=== PATIENT | male | born 1960 | race Caucasian/White ===

== ENCOUNTER 2016-06-05 07:27 | Day surgery (SDC) | payer BC ==
[2016-06-04 14:55] VITALS: BMI 37.1
[2016-06-05 08:21] VITALS: TEMP 98.2
[2016-06-05 15:46] VITALS: BP 138/86; PULSE 88
--- NOTE | 2016-06-08 13:19 | PATH ---
Surgical Pathology Report Patient Name: VIRGINIE ABEL III [facility]. Rec. #: [id number] /Age/Gender: 1960 (Age: 55) / M Account: [id number] Location: U-ENDOSCOPY Taken: 06/05/2016 Received: 06/05/2016 Reported: 06/08/2016 Physicians: Ralph Bryan M.D. Specimen(s) Received A: BX CECAL POLYP B: BX RIGHT COLON POLYP Clinical History Polyps, remote family history of cancer, screening colonoscopy Colon polyps Final Diagnosis A. COLON, CECUM, POLYP, BIOPSY: FRAGMENTS OF TUBULAR ADENOMA. B. COLON, RIGHT, POLYP, BIOPSY FRAGMENTS OF TUBULAR ADENOMA. ADDITIONAL FRAGMENTS OF UNREMARKABLE COLONIC MUCOSA. Electronically Signed Gaurav Gonzalez M.D. Gross Description A. Received in formalin, labeled "biopsy cecal polyp" are 2 cardenas, irregular portions of soft tissue measuring 0.3 and 0.4 cm in greatest dimension. The specimens are submitted in toto in one cassette. B. Received in formalin, labeled "biopsy right colon polyp" are 3 cardenas, irregular portions of soft tissue ranging from 0.1-0.4 cm in greatest dimension. The specimens are submitted in toto in one cassette. 06/05/201606/05/2016
== END 2016-06-05 10:45 | disposition home or self-care (01) ==
LOC: JASU-ENDO 07:27
PROVIDERS: ATTEND Internal Medicine Gastroenterology
PROC: 0DBH8ZX Excision of Cecum, Via Natural or Artificial Opening Endoscopic, Diagnostic (ICD-10-PCS; 2016-06-05)
PROC: 0DBK8ZX Excision of Ascending Colon, Via Natural or Artificial Opening Endoscopic, Diagnostic (ICD-10-PCS; principal; 2016-06-05 08:30)
DX: Z12.11 Encounter for screening for malignant neoplasm of colon (principal); Z80.0 Family history of malignant neoplasm of digestive organs; D12.0 Benign neoplasm of cecum; D12.2 Benign neoplasm of ascending colon; K63.89 Other specified diseases of intestine
CPT/HCPCS: 88305-TC

== ENCOUNTER 2020-05-22 13:51 | Inpatient (IN) | payer BC ==
[2020-05-22] MEDS ORDERED: ONDANSETRON 4 MG/2 ML VIAL IVPUSH ONE (14:57)
[2020-05-22] MEDS ORDERED: MECLIZINE HCL 25 MG TABLET (FP) PO ONE (14:57)
[2020-05-22] MEDS ORDERED: SODIUM CHLORIDE 1,000 ML IV SCH ×2 (15:00→19:00)
[2020-05-22] MEDS ORDERED: ONDANSETRON 4 MG/2 ML VIAL ONE (15:42)
[2020-05-22] MEDS ORDERED: MECLIZINE HCL 12.5 MG TABLET ONE (15:42)
[2020-05-22 16:19] LABS: BASO % 0.3 % (0-2.0); HEMATOCRIT 43.6 % (35.4-49); HEMOGLOBIN 15.1 GM/dL (11.7-16.9); LYMPH % 15.1 % (8-40); MCHC 34.6 g/dl (32.0-35.9); MEAN CELL VOLUME 95.6 fl (80-96); MEAN PLT VOLUME 7.3 fl (7.5-11.1); MONO % 6.9 % (3.8-10.2); NEUT % 76.7 % (42.8-82.8); PLATELET COUNT 245 K/MM3 (134-434); RBC 4.56 M/mm3 (4.00-5.60); RDW 13.2 % (11.9-15.9); WHITE BLOOD COUNT 7.5 K/mm3 (4.0-10.0)
[2020-05-22 16:37] LABS: CHLORIDE 108 mmol/L (98-107); POTASSIUM 4.3 mmol/L (3.5-5.1); SODIUM 143 mmol/L (136-145)
[2020-05-22 16:38] LABS: CALCIUM 9.9 mg/dL (8.5-10.1)
[2020-05-22 16:39] LABS: ALBUMIN 4.1 g/dl (3.4-5.0); ANION GAP 12 MMOL/L (8-16); BLOOD UREA NITROGEN 15.2 mg/dL (7-18); CO2 23 mmol/L (21-32); GLUCOSE,RANDOM 117 mg/dL (74-106); MAGNESIUM 2.4 mg/dL (1.8-2.4)
[2020-05-22 16:42] LABS: PHOSPHOROUS 2.5 mg/dL (2.5-4.9); SGOT/AST 90 U/L (15-37); SGPT/ALT 65 U/L (13-61)
[2020-05-22 16:43] LABS: BILIRUBIN,TOTAL 0.7 mg/dL (0.2-1)
[2020-05-22 16:44] LABS: TOT PROT 7.7 g/dl (6.4-8.2)
[2020-05-22 16:45] LABS: ALK PHOS 59 U/L (45-117)
[2020-05-22 21:26] LABS: INR 1.14 (0.83-1.09)
[2020-05-22 21:28] LABS: ACTIVATED PTT 33.2 SECONDS (25.2-36.5)
[2020-05-22] MEDS: TOPIRAMATE 100 MG TABLET PO SCH (23:16)
[2020-05-22] MEDS: QUEtiapine FUMARATE 300 MG TABLET PO SCH (23:16)
[2020-05-22 23:28] LABS: EPI CELLS 13 /uL (0-25.1); HYALINE CASTS 2 /uL (0-3.1); PH,URINE 6.5 (5.0-8.0); URINE APPEARANCE CLEAR; URINE BACTERIA 68 /uL (0-1359); URINE BILIRUBIN NEGATIVE (NEGATIVE); URINE COLOR YELLOW; URINE GLUCOSE (UA) NEGATIVE (NEGATIVE); URINE KETONE NEGATIVE (NEGATIVE); URINE LEUK ESTERASE 1+ (NEGATIVE); URINE NITRITE NEGATIVE (NEGATIVE); URINE PROTEIN NEGATIVE (NEGATIVE); URINE RBC 4 /uL (0-23.9); URINE UROBILINOGEN 0.2 mg/dL (0.2-1.0); URINE WBC 27 /uL (0-25.8)
[2020-05-23] MEDS ORDERED: ACETAMINOPHEN 1000 MG/100 ML VIAL (NON FORMULARY) IVPB ONE (01:27)
[2020-05-23] MEDS ORDERED: ACETAMINOPHEN INJECTION 100 ML IVPB ONE (01:35)
[2020-05-23 02:56] VITALS: BMI 37.8
[2020-05-23 07:32] LABS: BASO % 0.8 % (0-2.0); EOS % 2.5 % (0-4.5); HEMATOCRIT 38.7 % (35.4-49); HEMOGLOBIN 13.3 GM/dL (11.7-16.9); LYMPH % 28.5 % (8-40); MCHC 34.4 g/dl (32.0-35.9); MEAN CELL VOLUME 95.9 fl (80-96); MEAN PLT VOLUME 7.4 fl (7.5-11.1); MONO % 9.3 % (3.8-10.2); NEUT % 58.9 % (42.8-82.8); PLATELET COUNT 210 K/MM3 (134-434); RBC 4.03 M/mm3 (4.00-5.60); RDW 12.8 % (11.9-15.9); WHITE BLOOD COUNT 6.7 K/mm3 (4.0-10.0)
[2020-05-23 07:42] LABS: INR 1.21 (0.83-1.09); PROTHROMBIN TIME (PATIENT) 14.8 SEC (9.7-13.0)
[2020-05-23 07:45] LABS: ACTIVATED PTT 32.3 SECONDS (25.2-36.5)
[2020-05-23 07:51] LABS: POTASSIUM 3.6 mmol/L (3.5-5.1)
[2020-05-23 07:59] LABS: ALBUMIN 3.6 g/dl (3.4-5.0); CALCIUM 8.9 mg/dL (8.5-10.1)
[2020-05-23 08:00] LABS: MAGNESIUM 2.3 mg/dL (1.8-2.4)
[2020-05-23 08:01] LABS: BILIRUBIN,TOTAL 0.6 mg/dL (0.2-1); TOT PROT 6.7 g/dl (6.4-8.2)
[2020-05-23 08:03] LABS: PHOSPHOROUS 3.1 mg/dL (2.5-4.9)
[2020-05-23] MEDS ORDERED: PT OWN MED DRAWER 7, Y5N ONE ×2 (09:17→16:22)
[2020-05-23] MEDS ORDERED: MECLIZINE HCL 12.5 MG TABLET PO PRN (09:35)
[2020-05-23] MEDS: lamoTRIgine 100 MG TABLET PO SCH (17:40)
[2020-05-23] MEDS: MECLIZINE HCL 12.5 MG TABLET PO SCH (17:40)
[2020-05-23] MEDS ORDERED: QUEtiapine FUMARATE 100 MG TABLET (FP) ONE (20:50)
[2020-05-23] MEDS: QUEtiapine FUMARATE 300 MG TABLET PO SCH (21:21)
[2020-05-23] MEDS: TOPIRAMATE 100 MG TABLET PO SCH (21:21)
[2020-05-24] MEDS: MECLIZINE HCL 12.5 MG TABLET PO SCH ×2 (05:52)
[2020-05-24 05:54] VITALS: TEMP 98.1
[2020-05-24 08:06] VITALS: BP 121/60; PULSE 67
[2020-05-24 08:25] LABS: POTASSIUM 3.5 mmol/L (3.5-5.1)
[2020-05-24 08:54] LABS: ALBUMIN 3.8 g/dl (3.4-5.0)
[2020-05-24 08:55] LABS: BLOOD UREA NITROGEN 15.5 mg/dL (7-18)
[2020-05-24 08:59] LABS: BILIRUBIN,TOTAL 0.8 mg/dL (0.2-1); TOT PROT 7.1 g/dl (6.4-8.2)
[2020-05-24] MEDS: lamoTRIgine 100 MG TABLET PO SCH (09:15)
== END 2020-05-24 11:29 | disposition home or self-care (01) | DRG 66 ==
LOC: JER 13:51 → JERBED 18:04 → J4W 05-23 02:45
PROVIDERS: ADMIT Internal Medicine; ATTEND Family Medicine
DX: I61.8 Other nontraumatic intracerebral hemorrhage (principal); R42 Dizziness and giddiness; E78.5 Hyperlipidemia, unspecified; K58.9 Irritable bowel syndrome, unspecified; F32.9 Major depressive disorder, single episode, unspecified; E78.1 Pure hyperglyceridemia; X58.XXXA Exposure to other specified factors, initial encounter; Y92.89 Other specified places as the place of occurrence of the external cause; I44.0 Atrioventricular block, first degree; F51.5 Nightmare disorder; D18.09 Hemangioma of other sites
CPT/HCPCS: 36415; 70450-TC; 70544-TC; 70551-TC; 70552-TC; 71045-TC-FY; 80053; 81003; 82607; 83735; 84100; 84443; 84484; 85025; 85610; 85730; 86780; 93005; 93010; 93306-TC; 97116-GP; 97161-GP; 99285-25; C9803; J0131; U0003

== ENCOUNTER 2021-09-19 04:32 | Day surgery (SDC) | payer BC ==
[2021-09-19 08:00] VITALS: TEMP 97.8; BMI 35.6
[2021-09-19 10:06] VITALS: PULSE 65
[2021-09-19 10:39] VITALS: BP 92/53
== END 2021-09-19 10:30 | disposition home or self-care (01) ==
LOC: JASU-ENDO 04:32
PROVIDERS: ATTEND Internal Medicine Gastroenterology
PROC: 0DBL8ZX Excision of Transverse Colon, Via Natural or Artificial Opening Endoscopic, Diagnostic (ICD-10-PCS; principal; 2021-09-19 09:03)
DX: Z12.11 Encounter for screening for malignant neoplasm of colon (principal); Z86.010 Personal history of colon polyps; Z83.71 Family history of colonic polyps; D12.3 Benign neoplasm of transverse colon; K64.8 Other hemorrhoids; K57.30 Diverticulosis of large intestine without perforation or abscess without bleeding
CPT/HCPCS: 88305-TC